=== PATIENT | female | born 2000 | race Caucasian/White ===

== ENCOUNTER 2020-05-05 16:23 | Outpatient (CLI) | payer OTHER ==
[2020-05-05] MEDS ORDERED: PRENATAL TABLE1 EAC2 PO (17:25)
[2020-05-05] MEDS ORDERED: SYNTHROID50 MCG PO (17:26)
== END 2020-05-06 15:04 | disposition home or self-care (01) ==
LOC: OBS/DEL 16:23
PROVIDERS: ATTEND Specialist
DX: O23.42 Unspecified infection of urinary tract in pregnancy, second trimester (principal)

== ENCOUNTER 2020-07-02 18:31 | Inpatient (IN) | payer OTHER ==
[~2020-07-02] VITALS: Ht 152.4 cm; Wt 85.3 kg
[~2020-07-02 18:31] MED LIST: PRENATAL TABLE1 EAC2 PO; SYNTHROID50 MCG PO
== END 2020-07-05 18:18 | disposition home or self-care (01) | DRG 807 ==
LOC: OBS/DEL 18:31 → OB/GYN 20:35 → OBS/DEL 20:35 → LDR 20:35 → OB/GYN 07-03 05:52
PROVIDERS: ADMIT Specialist; ATTEND Specialist
PROC: 10E0XZZ Delivery of Products of Conception, External Approach (ICD-10-PCS; principal; 2020-07-03)
PROC: 0KQM0ZZ Repair Perineum Muscle, Open Approach (ICD-10-PCS; 2020-07-03)
PROC: 4A1HXFZ Monitoring of Products of Conception, Cardiac Rhythm, External Approach (ICD-10-PCS; 2020-07-03)
DX: O60.14X0 Preterm labor third trimester with preterm delivery third trimester, not applicable or unspecified (principal); Z37.0 Single live birth; O70.1 Second degree perineal laceration during delivery; Z3A.35 35 weeks gestation of pregnancy

== ENCOUNTER 2022-09-26 06:07 | Inpatient (IN) | payer OTHER ==
[~2022-09-26] VITALS: Ht 152.4 cm; Wt 82.1 kg
== END 2022-09-28 14:29 | disposition home or self-care (01) | DRG 807 ==
LOC: OB/GYN 06:07 → LDR 06:07 → OB/GYN 22:07
PROVIDERS: ADMIT Obstetrics & Gynecology; ATTEND Obstetrics & Gynecology
PROC: 10E0XZZ Delivery of Products of Conception, External Approach (ICD-10-PCS; principal; 2022-09-26)
PROC: 4A1HXCZ Monitoring of Products of Conception, Cardiac Rate, External Approach (ICD-10-PCS; 2022-09-26)
DX: O42.12 Full-term premature rupture of membranes, onset of labor more than 24 hours following rupture (principal); Z37.0 Single live birth; Z3A.39 39 weeks gestation of pregnancy; Z20.822 Contact with and (suspected) exposure to COVID-19